=== PATIENT | male | born 1965 | race Caucasian/White ===

== ENCOUNTER 2022-01-10 09:46 | Emergency (ER) | payer OTHER, SELFPAY ==
[2022-01-10 09:58] VITALS: BP 138/86; PULSE 69; RESP 18; TEMP 36.8; O2SAT 100; BMI 33.2
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
== END 2022-01-10 11:21 | disposition home or self-care (01) ==
PROVIDERS: Emergency Provider Emergency Medicine; PCP Family Medicine
DX: S29.012A Strain of muscle and tendon of back wall of thorax, initial encounter (principal); S60.222A Contusion of left hand, initial encounter; V43.52XA Car driver injured in collision with other type car in traffic accident, initial encounter; M79.652 Pain in left thigh; Y93.89 Activity, other specified; Y92.411 Interstate highway as the place of occurrence of the external cause; Y99.9 Unspecified external cause status
CPT/HCPCS: 99282; 99283